=== PATIENT | male | born 1985 | race Caucasian/White ===

== ENCOUNTER 2020-01-24 02:35 | Emergency (ER) | payer BC ==
[~2020-01-24] VITALS: Ht 177.8 cm; Wt 102.7 kg
[2020-01-24 02:45] VITALS: Ht 177.8 cm; Wt 102.7 kg
[2020-01-24 04:12] LABS: CALCIUM 8.5 mg/dL (8.5-10.1); CARBON DIOXIDE 28.2 mmol/L (21-32); CHLORIDE SERUM 100 mmol/L (98-107); CREATININE SERUM 0.8 mg/dL (0.7-1.3); GFR1 > 60 mL/min; GLUCOSE SERUM 118 mg/dL (74-106); POTASSIUM SERUM 3.4 mmol/L (3.5-5.1); SODIUM SERUM 137 mmol/L (136-145)
[2020-01-24 04:16] LABS: ALBUMIN 3.6 g/dL (3.4-5.0); ALKALINE PHOSPHATASE 51 U/L (46-116); ALT/SGPT 64 U/L (16-63); AST/SGOT 24 U/L (15-37); BILIRUBIN TOTAL 0.58 mg/dL (0.20-1.00); LIPASE 123 IU/L (73-393); TOTAL PROTEIN, SERUM 7.4 g/dL (6.4-8.2)
[2020-01-24 04:30] LABS: BASOPHIL % 0.4 % (0-2); PLATELET COUNT 257 x10^3mcL (130-400)
[2020-01-24 05:14] VITALS: BP 157/100
== END 2020-01-24 05:15 | disposition home or self-care (01) ==
LOC: ED 02:35
PROVIDERS: Emergency Medicine
DX: R42 Dizziness and giddiness (principal); R10.10 Upper abdominal pain, unspecified; I10 Essential (primary) hypertension
CPT/HCPCS: J3490; Q0092

== ENCOUNTER 2020-01-27 15:43 | Emergency (ER) | payer BC ==
[~2020-01-27] VITALS: Ht 177.8 cm; Wt 106.1 kg
[2020-01-27 15:50] VITALS: Ht 177.8 cm; Wt 106.1 kg
[2020-01-27 16:54] LABS: CALCIUM 9.1 mg/dL (8.5-10.1); CARBON DIOXIDE 27.5 mmol/L (21-32); CHLORIDE SERUM 101 mmol/L (98-107); CREATININE SERUM 0.9 mg/dL (0.7-1.3); GFR1 > 60 mL/min; GLUCOSE SERUM 108 mg/dL (74-106); POTASSIUM SERUM 4.1 mmol/L (3.5-5.1); SODIUM SERUM 139 mmol/L (136-145)
[2020-01-27 17:25] VITALS: BP 171/116
== END 2020-01-27 17:25 | disposition home or self-care (01) ==
LOC: ED 15:43
PROVIDERS: Emergency Medicine
DX: K59.00 Constipation, unspecified (principal); I10 Essential (primary) hypertension; R42 Dizziness and giddiness
CPT/HCPCS: 36415